=== PATIENT | male | born 1945 | race Caucasian/White ===

== ENCOUNTER 2019-04-13 18:24 | Emergency (ER) | payer MEDICARE, BC ==
[~2019-04-13] VITALS: Ht 180.3 cm; Wt 88.6 kg
[2019-04-13 18:32] VITALS: BP 11/95
[2019-04-13] MEDS ORDERED: CYCL-1 PO (19:29)
[2019-04-13] MEDS ORDERED: ketorolac trometh. 30mg/ml inj. IM ONE (19:30)
[2019-04-13] MEDS ORDERED: LIDOcaine 5% patch TP SCH (19:30)
[2019-04-13] MEDS ORDERED: HYDROcodone/acetaminophen 5mg/325mg tablet PO ONE (19:30)
[2019-04-13] MEDS ORDERED: cyclobenzaprine 10mg tablet PO ONE (19:30)
== END 2019-04-13 19:52 | disposition home or self-care (01) ==
LOC: ER 18:25
DX: G89.29 Other chronic pain (principal); M54.9 Dorsalgia, unspecified; E11.9 Type 2 diabetes mellitus without complications; Z85.9 Personal history of malignant neoplasm, unspecified; Z79.899 Other long term (current) drug therapy
CPT/HCPCS: 93005; 96372; 99284; J1885